=== PATIENT | female | born 1985 | race Caucasian/White ===

== ENCOUNTER 2019-10-01 22:07 | Emergency (ER) | payer BC ==
[~2019-10-01] VITALS: Ht 172.7 cm; Wt 57.6 kg
--- NOTE | 2019-10-01 22:21 | NUR ---
Dr. Valverde at bedside for MSE.
--- NOTE | 2019-10-01 22:31 | NUR ---
Pt provided urine sample, sent to lab.
[2019-10-01 22:55] LABS: BASOPHILS # (AUTO) 0.1 K/uL (0.0-8.0); BASOPHILS % (AUTO) 0.8 % (0.0-2.0); EOSINOPHILS # (AUTO) 0.2 K/uL (0.0-0.7); EOSINOPHILS % (AUTO) 2.5 % (0.0-7.0); HEMATOCRIT 38.1 % (31.2-41.9); HEMOGLOBIN 13.1 g/dL (10.9-14.3); LYMPHOCYTES # (AUTO) 2.1 K/uL (20.0-40.0); LYMPHOCYTES % (AUTO) 32.4 % (20.5-51.5); MEAN CORPUSCULAR HEMOGLOBIN 29.7 uug (24.7-32.8); MEAN CORPUSCULAR HGB CONC 34 g/dL (32.3-35.6); MEAN CORPUSCULAR VOLUME 86.2 fL (75.5-95.3); MONOCYTES # (AUTO) 0.6 K/uL (2.0-10.0); MONOCYTES % (AUTO) 9.5 % (0.0-11.0); NEUTROPHILS # (AUTO) 3.6 K/uL (1.8-8.9); NEUTROPHILS % (AUTO) 54.8 % (38.5-71.5); PLATELET COUNT (AUTO) 300 K/uL (179-408); RED BLOOD CELL COUNT(AUTO) 4.42 MIL/uL (3.63-4.92); WHITE BLOOD COUNT (AUTO) 6.6 K/uL (3.8-11.8)
[2019-10-01 23:09] LABS: CREATININE 0.7 mg/dL (0.6-1.3); POTASSIUM 3.3 mmol/L (3.5-5.1)
[2019-10-01 23:28] LABS: *URINE HCG, QUAL NEGATIVE (NEGATIVE)
--- NOTE | 2019-10-01 23:55 | NUR ---
Xray at bedside.
[2019-10-02] MEDS ORDERED: IOHEXOL 300MG/ML 100 ML INFUS..BTL ONE (00:46)
[2019-10-02] MEDS ORDERED: SWABABLE VALVE TRANSFER SET EA MC ONE (00:46)
[2019-10-02] MEDS ORDERED: IV NORMAL SALINE 250 ML IV ONE (00:46)
--- NOTE | 2019-10-02 00:49 | NUR ---
Pt out of ER for CT.
--- NOTE | 2019-10-02 01:05 | NUR ---
Pt back to ER from CT.
--- NOTE | 2019-10-02 02:23 | NUR ---
Patient discharged to home in stable condition. Written and verbal after care instructions given. Patient verbalizes understanding of instructions. Stressed follow up or return to ER for worsening s/s. Patient ambulated out of ER with steady gait, no acute signs of distress, VSS, all belongings taken, IV site discontinued.
[2019-10-02 02:25] VITALS: BP 135/70
== END 2019-10-02 02:25 | disposition home or self-care (01) ==
LOC: ER 22:11
DX: R07.9 Chest pain, unspecified (principal); Q79.60 Ehlers-Danlos syndrome, unspecified
CPT/HCPCS: 36415 ×2; 71045; 71260; 80048; 84484 ×2; 84703; 85025; 85379; 93005 ×2; 99285; Q9967; 70030-TC; A4663; J7050